=== PATIENT | female | born 1970 | race Caucasian/White ===

== ENCOUNTER 2018-07-10 17:07 | Emergency (ER) | payer BC ==
[2018-07-10 17:42] VITALS: BP 107/54
--- NOTE | 2018-07-10 18:30 | ED ---
Lower Extremity - HPI Summary HPI Summary: running for the last several months developed pain in the left ankle and the dorsal portion of the forefoot, pain resolved then after some rest began again as she started running again - History of Current Complaint Chief Complaint: UCLowerExtremity Stated Complaint: LT FOOT/ANKLE PAIN Time Seen by Provider: 07/10/18 18:15 Hx Obtained From: Patient Hx Last Menstrual Period: uterine ablation Onset of Pain: Days Onset/Duration: Weeks Pain Intensity: 5 Timing: Constant Character Of Pain: Sharp, Burning Associated Signs And Symptoms: Positive: Negative Aggravating Factor(s): Weight Bearing Alleviating Factor(s): Rest - Allergies/Home Medications Allergies/Adverse Reactions: Allergies Allergy/AdvReac Type Severity Reaction Status Date / Time NSAIDS (Non-Steroidal Allergy Severe has Verified 07/10/18 17:42 Anti-Inflamma clotting disorder Tetracyclines AdvReac GI Verified 07/10/18 17:42 Home Medications: Home Medications NK [No Home Medications Reported] 07/10/18 [History Confirmed 07/10/18] PMH/Surg Hx/FS Hx/Imm Hx Previously Healthy: Yes - Surgical History Surgery Procedure, Year, and Place: uterine ablation. tubal ligation. fatty tumors. gangion cyst Infectious Disease History: No Infectious Disease History: Denies: Traveled Outside the [place] in Last 30 Days - Social History Alcohol Use: Occasionally Substance Use Type: Reports: None Smoking Status (MU): Never Smoked Tobacco Review of Systems Constitutional: Negative Eyes: Negative ENT: Negative Cardiovascular: Negative Respiratory: Negative Gastrointestinal: Negative Genitourinary: Negative Musculoskeletal: Other - pain left foot and ankle with weight bearing Skin: Negative Neurological: Negative All Other Systems Reviewed And Are Negative: Yes Physical Exam Triage Information Reviewed: Yes Vital Signs On Initial Exam: Initial Vitals Temp Pulse Resp BP Pulse Ox 37.2 C 68 17 107/54 100 07/10/18 17:31 07/10/18 17:31 07/10/18 17:31 07/10/18 17:31 07/10/18 17:31 Vital Signs Reviewed: Yes Appearance: Positive: Well-Appearing Skin: Positive: Warm, Dry Musculoskeletal: Positive: Other - pain on inversion worse than pain eversion of the ankle, pain with plantar flexion greater than dorsiflexion over the forefoot, sensation normal, foot well perfused Diagnostics - Vital Signs Vital Signs Temp Pulse Resp BP Pulse Ox 07/10/18 17:31 37.2 C 68 17 107/54 100 - Laboratory Lab Statement: Any lab studies that have been ordered have been reviewed, and results considered in the medical decision making process. Lower Extremity Course/Dx - Diagnoses Provider Diagnoses: Ankle sprain Discharge - Sign-Out/Discharge Documenting (check all that apply): Patient Departure All imaging exams completed and their final reports reviewed: Yes - Discharge Plan Condition: Good Disposition: HOME Patient Education Materials: Ankle Sprain (DC) Referrals: Rach Montes PA [Primary Care Provider] - Additional Instructions: recommend walking boot, and rest, nsaids , ice , elevation. if no improvement further evaluation by orthopedist - Billing Disposition and Condition Condition: GOOD Disposition: Home
--- NOTE | 2018-07-11 07:50 | RAD ---
Indication: LEFT ankle and foot pain and swelling with running. Comparison: No relevant prior exams available on the [facility] for comparison. Technique: AP, mortise, and lateral views LEFT ankle. AP, lateral, and oblique views of the LEFT foot. REPORT AND IMPRESSION: #. Negative for fracture, osteochondral lesion, radiographic findings of stress reaction, or focal osseous lesions at the ankle or foot. #. Normal articular alignment and preserved joint spaces. #. Suggestion of potential talocrural joint effusion. #. Tiny plantar fascia origin bone spur. #. Mild nonfocal soft tissue swelling at the ankle and foot. R2
--- NOTE | 2018-07-11 07:50 | RAD ---
Indication: LEFT ankle and foot pain and swelling with running. Comparison: No relevant prior exams available on the [facility] [place] [place]. Technique: AP, mortise, and lateral views LEFT ankle. AP, lateral, and oblique views of the LEFT foot. REPORT AND IMPRESSION: #. Negative for fracture, osteochondral lesion, radiographic findings of stress reaction, or focal osseous lesions at the ankle or foot. #. Normal articular alignment and preserved joint spaces. #. Suggestion of potential talocrural joint effusion. #. Tiny plantar fascia origin bone spur. #. Mild nonfocal soft tissue swelling at the ankle and foot. R2
== END 2018-07-10 19:15 | disposition home or self-care (01) ==
LOC: UCCORT 17:07
DX: S93.402A Sprain of unspecified ligament of left ankle, initial encounter (principal); Y93.02 Activity, running; Y92.9 Unspecified place or not applicable; M25.572 Pain in left ankle and joints of left foot; Z88.8 Allergy status to other drugs, medicaments and biological substances; Z88.1 Allergy status to other antibiotic agents
CPT/HCPCS: 99212; G0463

== ENCOUNTER 2019-06-30 11:46 | Emergency (ER) | payer BC ==
--- OUTSIDE RECORDS SUMMARY | 2019-06-30 11:56 | XMS REPORT | Continuity of Care Document ---
:1970 External Reference #:[id number] Author Name ROXANNA Talley (transmitted by agent of provider Heriberto Livingston) Address [address] [place] [address] Care Team Providers Name Role Phone Rach Montes PA - Physician Hospice Art Therapist Care Team Information Rubber Attacher Carmelo Chavez MD - Orthopaedic Care Team Information Rubber Attacher [phone] Surgery Meir Boucher MD - Orthopaedic Care Team Information Rubber Attacher Surgery Livier Mascorro - Gynecology Care Team Information Rubber Attacher [phone] Problems Active Problems Provider Date Pure hypercholesterolemia Onset: 11/29/2011 H/O: pulmonary embolus ROXANNA Talley Onset: 11/29/2018 Anxiety state Onset: 08/25/2011 Depressive disorder Onset: 08/25/2011 Pulmonary embolism Onset: 08/25/2011 Migraine with typical aura Onset: 08/25/2011 Tachycardia Onset: 08/25/2011 Hyperlipidemia Onset: 08/25/2011 Constipation Onset: 08/25/2011 Dysfunctional uterine bleeding ROXANNA Talley Onset: 11/29/2018 Shoulder joint pain ROXANNA Talley Onset: 11/29/2018 Long-term current use of anticoagulant ROXANNA Talley Onset: 11/29/2018 Neck pain ROXANNA Talley Onset: 11/29/2018 Reactive airway disease ROXANNA Talley Onset: 11/29/2018 Dysmenorrhea ROXANNA Talley Onset: 01/23/2019 Social History Type Date Description Comments Sex Unknown ETOH Use Ocassionally consumes Alcohol Recreational Drug Use Denies Drug Use Tobacco Use Start: Unknown End: Patient is a former 1-2 cigars a year Unknown smoker Smoking Status Reviewed: 06/27/19 Patient is a former 1-2 cigars a year smoker Exercise Type/Frequency Exercises regularly Allergies, Adverse Reactions, Alerts Active Allergies Reaction Severity Comments Date Tetracycline 01/13/2018 Adhesive 01/13/2018 No BC Pills 10/06/2018 Tetracycline 10/06/2018 Medications Active Medications SIG Qnty Indications Ordering Date Provider Amoxicillin 1 by mouth twice 20tabs J01.90 Reid 06/27/2019 875mg a day MD Chely Tablets Rosuvastatin Calcium take one tablet 30tabs E78.5 Reid 05/07/2019 by mouth at MD Chely 5mg Tablets bedtime Ventolin HFA 2 puffs every 4 18units Reid 02/08/2018 as needed for sob MD Chely 108(90Base) mcg/Act and wheezing Aerosol Warfarin Sodium take 1 tablet by 90tabs Reid 05/04/2013 5mg mouth every MD Chely Tablets evening as directed Tylenol Extra 2 by mouth as Unknown Strength needed 500mg Tablets Tramadol HCL 1-2 tablets by Unknown 50mg mouth every 6 Tablets hours as needed pain Medications Administered in Office Medication SIG Qnty Indications Ordering Provider Date Celestone 3 mg and 3mg Carmelo Chavez MD 01/13/2018 Injection Immunizations CPT Code Status Date Vaccine Lot # [id number] Given 07/12/2018 Influenza Virus Vaccine, Quadrivalent, Split, Im Use 6-35mo 65861 Given 06/18/2017 Influenza Virus Vaccine, Quadrivalent, Split, Im Use 6-35mo 35408 Given 09/22/2015 Influenza Virus Vaccine, Quadrivalent, Split, Im Use 6-35mo 96046 Given 07/26/2014 Influenza Virus 3Yrs & Over 47240 Given 08/24/2013 Influenza Virus 3Yrs & Over 42709 Given 10/18/2012 Influenza Virus 3Yrs & Over 53397 Given 04/06/2011 Tdap - Tetanus/Diptheria/Acellular Pertussis 57267 Given 06/29/2010 Influenza Virus 3Yrs & Over 04859 Given 07/31/2009 Influenza Virus 3Yrs & Over 62531 Given 07/31/2009 Administration Swine Flu Shot 68951 Given 06/28/2008 Influenza Virus 3Yrs & Over 41009 Given 03/29/2008 Measles Mumps And Rubella MMR 34480 Given 09/19/2007 Influenza Virus 3Yrs & Over 98435 Given 03/27/2007 Tetanus And Diptheria (Td) For Adult Use Preservative Free 66289 Given 08/16/2003 Hepatitis B Fela Adoles For Intramuscular Use 23614 Given 08/01/2003 Influenza Virus 3Yrs & Over 07485 Given 08/17/2002 Rabies Vaccine Intramuscular 21563 Given 07/20/2002 Rabies Vaccine Intramuscular 42854 Given 07/13/2002 Rabies Vaccine Intramuscular 50729 Given 07/06/2002 Rabies Vaccine Intramuscular 90132 Given 07/06/2002 Rabies Immune Globulin Intramuscular/Subcutaneous Vital Signs Date Vital Result Comment 06/27/2019 2:00pm Weight 242.56 lb Heart Rate 74 /min BP Systolic Sitting 108 mmHg BP Diastolic Sitting 50 mmHg Body Temperature 99.6 F O2 % BldC Oximetry 97 % 05/07/2019 1:23pm Weight 245.38 lb BP Systolic Sitting 110 mmHg BP Diastolic Sitting 60 mmHg Results Test Date Facility Test Result H/L Range Note Inr/Protime 06/15/2019 [facility] Inr 2.32 High 0.82-1.09 1 [address] [place] [address] [phone] Lipid Profile 06/15/2019 [facility] Triglycerides 141 mg/dL 2 (Trig/Chol/HDL) [address] [place] [address] [phone] Cholesterol 190 mg/dL 3 HDL Cholesterol 55.4 mg/dL 4 LDL Cholesterol 106 mg/dL 5 Liver Function 06/15/2019 [facility] Total Protein 6.3 g/dL Low 6.4-8.9 Panel [address] [place] [address] [phone] Albumin 4.3 g/dL Normal 3.2-5.2 Globulin 2.0 g/dL Normal 2-4 Albumin/Globulin Ratio 2.2 Normal 1-3 Total Bilirubin 0.60 mg/dL Normal 0.2-1.0 Direct Bilirubin 0.10 mg/dL Normal 0.03-0.18 Indirect Bilirubin 0.5 mg/dL Normal 0.3-1.0 Alkaline Phosphatase 40 U/L Normal 34-104 Alt 19 U/L Normal 7-52 Ast 15 U/L Normal 13-39 Inr/Protime 05/15/2019 [facility] Inr 2.60 High 0.82-1.[address] [place] [address] [phone] Basic Metabolic 04/11/2019 [facility] Sodium 138 mmol/L Normal 135-[address] [place] [address] [phone] Potassium 4.3 mmol/L Normal 3.5-5.0 Chloride 105 mmol/L Normal 101-111 Co2 Carbon Dioxide 25 mmol/L Normal 22-32 Anion Gap 8 mmol/L Normal 2-11 Glucose 84 mg/dL Normal 70-100 Blood Urea Nitrogen 11 mg/dL Normal 6-24 Creatinine 0.78 mg/dL Normal 0.51-0.95 BUN/Creatinine Ratio 14.1 Normal 8-20 Calcium 9.3 mg/dL Normal 8.6-10.3 Egfr Non- 78.8 >60 Egfr 95.4 >60 7 CBC Auto 04/11/2019 [facility] White Blood 5.3 10^3/uL Normal 3.5-10.[address] [place] [address] [phone] Red Blood Count 5.09 10^6/uL High 3.70-4.87 Hemoglobin 14.5 g/dL Normal 12.0-16.0 Hematocrit 43 % Normal 35-47 Mean Corpuscular Volume 85 fL Normal 80-97 Mean Corpuscular Hemoglobin 29 pg Normal 27-31 Mean Corpuscular HGB Conc 33 g/dL Normal 31-36 Red Cell Distribution Width 15 % Normal 10-15 Platelet Count 232 10^3/uL Normal 150-450 Mean Platelet Volume 8.5 fL Normal 7.4-10.4 Abs Neutrophils 3.0 10^3/uL Normal 1.5-7.7 Abs Lymphocytes 1.9 10^3/uL Normal 1.0-4.8 Abs Monocytes 0.3 10^3/uL Normal 0-0.8 Abs Eosinophils 0.1 10^3/uL Normal 0-0.6 Abs Basophils 0.0 10^3/uL Normal 0-0.2 Abs Nucleated RBC 0.0 10^3/uL Granulocyte % 56.8 % Lymphocyte % 35.1 % Monocyte % 5.9 % Eosinophil % 1.6 % Basophil % 0.6 % Nucleated Red Blood Cells % 0.0 Lipid Profile 04/11/2019 [facility] Triglycerides 152 mg/dL 8 (Trig/Chol/HDL) [address] [place] [address] [phone] Cholesterol 295 mg/dL 9 HDL Cholesterol 69.3 mg/dL 10 LDL Cholesterol 195 mg/dL 11 Liver Function 04/11/2019 [facility] Total Protein 6.7 g/dL Normal 6.4-8.9 Panel [address] [place] [address] [phone] Albumin 4.2 g/dL Normal 3.2-5.2 Globulin 2.5 g/dL Normal 2-4 Albumin/Globulin Ratio 1.7 Normal 1-3 Total Bilirubin 0.50 mg/dL Normal 0.2-1.0 Direct Bilirubin 0.10 mg/dL Normal 0.03-0.18 Indirect Bilirubin 0.4 mg/dL Normal 0.3-1.0 Alkaline Phosphatase 41 U/L Normal 34-104 Alt 20 U/L Normal 7-52 Ast 16 U/L Normal 13-39 Inr/Protime 04/11/2019 [facility] Inr 2.56 High 0.82-1.09 12 [address] [place] [address] [phone] Inr/Protime 03/03/2019 [facility] Inr 2.53 High 0.82-1.09 [address] [place] [address] [phone] Inr/Protime 01/22/2019 [facility] Inr 2.74 High 0.82-1.09 [address] [place] [address] [phone] Standard intensity warfarin therapeutic range: 2.0-3.0 High intensity warfarin therapeutic range: 2.5-3.5 2 Desirable: <150 Borderline High: 150-199 High: 200-499 Very High: >500 3 Desirable: <200 Borderline High: 200-239 High: >239 4 Low: <40 Desirable: 40-60 High: >60 5 Desirable: <100 Near Optimal: 100-129 Borderline High: 130-159 High: 160-189 Very High: >189 6 Standard intensity warfarin therapeutic range: 2.0-3.0 High intensity warfarin therapeutic range: 2.5-3.5 7 Because ethnic data is not always readily available, this report includes an eGFR for both -Americans and non- Americans. The National Kidney Disease Education Program (NKDEP) does not endorse the use of the MDRD equation for patients that are not between the ages of 18 and 70, are , have extremes of body size, muscle mass, or nutritional status, or are non- or non-. According to the National Kidney Foundation, irrespective of diagnosis, the stage of the disease is based on the level of kidney function: Stage Description GFR(mL/min/1.73 m(2)) 1 Kidney damage with normal or decreased GFR 90 2 Kidney damage with mild decrease in GFR 60-89 3 Moderate decrease in GFR 30-59 4 Severe decrease in GFR 15-29 5 Kidney failure <15 (or dialysis) 8 Desirable: <150 Borderline High: 150-199 High: 200-499 Very High: >500 9 Desirable: <200 Borderline High: 200-239 High: >239 10 Low: <40 Desirable: 40-60 High: >60 11 Desirable: <100 Near Optimal: 100-129 Borderline High: 130-159 High: 160-189 Very High: >189 12 Standard intensity warfarin therapeutic range: 2.0-3.0 High intensity warfarin therapeutic range: 2.5-3.5 13 Standard intensity warfarin therapeutic range: 2.0-3.0 High intensity warfarin therapeutic range: 2.5-3.5 14 Standard intensity warfarin therapeutic range: 2.0-3.0 High intensity warfarin therapeutic range: 2.5-3.5 Procedures Date Code Description Status 11/08/2018 37467320 Mammogram Completed Medical Devices Description No Information Available Encounters Type Date Location Provider Dx Diagnosis Office Visit 05/07/2019 [facility] ROXANNA Talley E78.5 Hyperlipidemia, 1:15p unspecified Office Visit 01/23/2019 [facility] ROXANNA Talley Z00.01 Encounter for 8:15a general adult medical exam w abnormal findings Office Visit 12/27/2018 [facility] ROXANNA Talley M79.672 Pain in left foot 2:30p M72.2 Plantar fascial fibromatosis M77.50 Other enthesopathy of unspecified foot and ankle E66.09 Other obesity due to excess calories Office Visit 12/27/2018 [facility] M19.072 Primary 9:[facility] Evelia Boucher M.D. 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 12/27/2018 M72.2 Plantar fascial fibromatosis ROXANNA Talley 12/27/2018 M77.50 Other enthesopathy of unspecified foot ROXANNA Talley 12/27/2018 E66.09 Other obesity due to excess calories ROXANNA Talley Plan of Treatment Future Appointment(s):01/29/2020 8:00 am - ROXANNA Talley at [facility] - ROXANNA TalleyJ06.9 Acute upper respiratory infection, zdqoiwiugavA76.90 Acute sinusitis, unspecifiedNew Medication:Amoxicillin 875 mg - 1 by mouth twice a dayR05 Cough Functional Status Functional Condition Comment Date Status CONTACTS Active Glasses Active CONTACTS Active Mental Status Description No Information Available Referrals Description No Information Available
[2019-06-30 12:58] VITALS: BP 119/68
[2019-06-30] MEDS ORDERED: Acetaminophen TAB* 325 MG PO ONE (13:47)
--- NOTE | 2019-06-30 14:28 | UC ---
Lower Extremity/Ankle HPI - HPI Summary HPI Summary: 49-year-old female presents with complaints of left foot pain. States she accidentally stepped down off a curb causing an inversion injury to the foot. States she felt a "pop" to the lateral aspect of her foot. She has been unable to walk or bear weight since the injury. Denies any numbness or tingling. - History of Current Complaint Chief Complaint: UCLowerExtremity Stated Complaint: LT FOOT INJURY Time Seen by Provider: 06/30/19 13:43 Hx Obtained From: Patient Hx Last Menstrual Period: uterine ablation Pain Intensity: 10 - Allergies/Home Medications Allergies/Adverse Reactions: Allergies Allergy/AdvReac Type Severity Reaction Status Date / Time NSAIDS (Non-Steroidal Allergy Severe has Verified 06/30/19 12:58 Anti-Inflamma clotting disorder adhesive Allergy Rash Verified 06/30/19 12:58 Tetracyclines AdvReac GI Verified 06/30/19 12:58 Home Medications: Home Medications Amoxicillin PO (*) [Amoxicillin 875 MG (*)] 875 mg PO BID 06/30/19 [History Confirmed 06/30/19] Rosuvastatin Calcium [Crestor] 5 mg PO DAILY 06/30/19 [History Confirmed ] PMH/Surg Hx/FS Hx/Imm Hx Endocrine History: Dyslipidemia Cardiovascular History: Bleeding Disorders - Surgical History Surgical History: Yes Surgery Procedure, Year, and Place: uterine ablation; tubal ligation; fatty tumors; gangion cyst - Family History Known Family History: Positive: Non-Contributory - Social History Occupation: Employed Full-time Lives: With Family Alcohol Use: Occasionally Substance Use Type: None Smoking Status (MU): Never Smoked Tobacco Review of Systems All Other Systems Reviewed And Are Negative: Yes Skin: Positive: Bruising Respiratory: Positive: Negative Cardiovascular: Positive: Negative Gastrointestinal: Positive: Negative Genitourinary: Positive: Negative Motor: Negative: Weakness Neurovascular: Negative: Decreased Sensation Musculoskeletal: Positive: Other: - See HPI Neurological: Positive: Negative Is Patient Immunocompromised?: No Physical Exam - Summary Physical Exam Summary: GENERAL APPEARANCE: Well developed, well nourished, alert and cooperative, and appears to be in no acute distress. CARDIAC: Normal S1 and S2. No S3, S4 or murmurs. Rhythm is regular. There is no peripheral edema, cyanosis or pallor. Extremities are warm and well perfused. Capillary refill is less than 2 seconds. Peripheral pulses intact. LUNGS: Clear to auscultation without rales, rhonchi, wheezing or diminished breath sounds. ABDOMEN: Positive bowel sounds. Soft, nondistended, nontender. No guarding or rebound. No masses or hepatosplenomegally. MUSKULOSKELETAL: ROM intact to all extremities. No joint erythema or tenderness. Normal muscular development. EXTREMITIES: Tenderness over the proximal 5th metatarsal of the left foot with mild ecchymosis. No gross deformity. Circulation and and sensation intact. SKIN: Skin normal color, texture and turgor with no lesions or eruptions. Triage Information Reviewed: Yes Vital Signs: Initial Vital Signs Temp 98.9 F 06/30/19 12:44 Pulse 78 06/30/19 12:44 Resp 16 06/30/19 12:44 BP 119/68 06/30/19 12:44 Pulse Ox 100 06/30/19 12:44 Vital Signs Reviewed: Yes Procedures - Splinting Left Lower Extremity Hand-Made Type: orthoglass Splint: Posterior short leg splint Pre-Proc Neuro Vasc Exam: normal Post-Proc Neuro Vasc Exam: normal Diagnostics - Radiology No standard instances Radiology Interpretation Completed By: Radiologist Summary of Radiographic Findings: Order Information: FOOT LEFT 3+ VWS. HISTORY : pain s/p inversion injury . COMPARISONS: July 10, 2018 VIEWS: 3, Frontal, lateral, and oblique views of the left foot. FINDINGS: BONE DENSITY: Normal. BONES: There is a nondisplaced fracture of the base of the fifth metatarsal with articular extension. There is a small plantar calcaneal enthesophyte. JOINTS: There is no arthropathy. ALIGNMENT: There is no dislocation. SOFT TISSUES: Unremarkable. OTHER FINDINGS: None. IMPRESSION: FRACTURE OF THE BASE OF THE FIFTH METATARSAL. Lower Extremity Course/Dx - Course Course Of Treatment: 49-year-old female presents with complaints of left foot pain. States she accidentally stepped down off a curb causing an inversion injury to the foot. States she felt a "pop" to the lateral aspect of her foot. She has been unable to walk or bear weight since the injury. Denies numbness or tingling. Afebrile. Vital signs stable. Patient had tenderness over the proximal 5th metatarsal of the left foot with mild ecchymosis. No gross deformity. Circulation and and sensation intact. Remainder of exam is unremarkable. X- ray showed a nondisplaced fracture of the proximal fifth metatarsal. Results were reviewed with the patient. She was placed in a posterior lower leg splint by myself using Ortho-Glass. Circulation and sensation were intact pre-and post -application. Patient was provided crutches and instructed to remain nonweightbearing. Recommended conservative treatment including over-the- counter acetaminophen and RICE. She is to follow-up with orthopedic surgery in 3 days for further evaluation and treatment. Anticipatory guidance and warning symptoms were reviewed with the patient. Verbalizes understanding and agrees with plan of care. - Differential Dx/Diagnosis Differential Diagnosis/HQI/PQRI: Contusion, Dislocation, Fracture (Closed), Sprain Provider Diagnosis: Nondisplaced fracture of metatarsal bone of left foot Discharge ED - Sign-Out/Discharge Documenting (check all that apply): Patient Departure All imaging exams completed and their final reports reviewed: Yes - Discharge Plan Condition: Stable Disposition: HOME Patient Education Materials: Crutch Instructions (ED), Foot Fracture in Adults (ED), Splint Care (ED) Referrals: Rach Montes PA [Primary Care Provider] - Carmelo Chavez MD [Medical Doctor] - Additional Instructions: The x-ray performed in the clinic today showed evidence of a non-displaced fracture of the proximal 5th metatarsal of the left foot. Rest the foot. You should remain non-weightbearing at this time. Use the crutches that were provided to you in the clinic. Apply ice to the affected area for 15-20 minutes at least 4 times a day to help with the pain and swelling. Elevate the foot to help reduce swelling. Take acetaminophen (Tylenol) according to directions as needed for pain. Follow up with orthopedic surgery in 3 days for further evaluation and treatment. Seek immediate medical attention if you have severe pain not managed with pain medication, develop numbness or tingling in the foot or toes, or have any worsening of symptoms. - Billing Disposition and Condition Condition: STABLE Disposition: Home
== END 2019-06-30 15:02 | disposition home or self-care (01) ==
LOC: UCCORT 11:46
DX: S92.355A Nondisplaced fracture of fifth metatarsal bone, left foot, initial encounter for closed fracture (principal); X50.0XXA Overexertion from strenuous movement or load, initial encounter; Y93.01 Activity, walking, marching and hiking; Y92.410 Unspecified street and highway as the place of occurrence of the external cause; Z88.6 Allergy status to analgesic agent; Z88.1 Allergy status to other antibiotic agents; E78.5 Hyperlipidemia, unspecified
CPT/HCPCS: 28470; 99213; A9270-GY; G0463